=== PATIENT | female | born 1980 | race Caucasian/White ===

== ENCOUNTER 2019-08-05 15:13 | Emergency (ER) | payer BC, SELFPAY ==
[2019-08-05 15:18] VITALS: BP 127/72; PULSE 86; RESP 18; TEMP 37.1; O2SAT 100
--- NOTE | 2019-08-05 15:39 | ED.BACK ---
HPI - Back Pain/Injury General Chief Complaint: Back Pain/Injury Stated Complaint: back pain Time Seen by Provider: 08/05/19 15:24 Source: patient and RN notes reviewed Mode of arrival: ambulatory Limitations: no limitations History of Present Illness HPI Narrative: Patient presents today complaining of low back pain since 11 AM when she tried to lift a dresser at home. She reports sudden onset sharp pain, radiation to the left lateral hip that she describes as burning. Denies numbness or tingling in the legs or feet. Denies any loss of bowel or bladder control. Pain increases with movement. She has been taking Tylenol without relief. Currently rates her pain 11/12. No history of chronic back pain or back surgeries. MD elicited complaint: back pain Related Data Home Medications Medication Instructions Recorded Confirmed aripiprazole [Abilify] 10 mg PO HS 08/05/19 08/05/19 Allergies Allergy/AdvReac Type Severity Reaction Status Date / Time ibuprofen Allergy Intermediate Swelling Verified 08/05/19 15:27 Review of Systems Review of Systems: Narrative: CONSTITUTIONAL: Denies body aches, fever, chills, or sweats. EYES: Denies visual changes, redness, or discharge. ENT: Denies rhinorrhea, congestion, sore throat, or otalgia. CARDIOVASCULAR: Denies chest pain, palpitations, or edema. RESPIRATORY: Denies cough or dyspnea. GASTROINTESTINAL: Denies abdominal pain, nausea, vomiting, or diarrhea. GENITOURINARY: Denies dysuria or hematuria. SKIN: Denies rash, itching, or wounds. MUSCULOSKELETAL: Denies joint pain, or myalgia.+ Low back pain NEUROLOGIC: Denies headache, numbness, tingling, or weakness. PSYCH: Denies depression or anxiety. [facility] Surgical History Surgical History (Updated 08/05/19 @ 15:40 by Rox Coe, RECONCILIATION CLERK, ) H/O: hysterectomy Comments At time of signature, I have reviewed and agree with nursing past medical, surgical, social and family history unless otherwise noted. Please see nursing chart for further information. There is no relevant family history pertinent to the presenting complaint Exam Narrative: Exam Narrative: GENERAL: Well-appearing, well-nourished, and in mild pain distress. HEAD: Normocephalic, atraumatic. EYES: EOMI. No redness or drainage. Conjunctivae normal. ENT: Mucous membranes pink and moist. NECK: Normal AROM. CHEST: No respiratory distress. MUSCULOSKELETAL: Tenderness of the lower thoracic and entire lumbar spine and bilateral paraspinal muscles, right greater than left. Distal sensation intact. Capillary refill normal. Pedal pulses normal. Foot push and pulls normal. Saddle sensation intact. EXTREMITIES: Normal range of motion. No edema. SKIN: Warm, dry, no rash. Capillary refill normal. Normal skin turgor. NEURO: No focal deficits. Alert and oriented x3. Gait steady. PSYCH: Normal affect. No signs of depression or anxiety. Course Vital Signs Vital signs: Vital Signs Temperature 98.8 F 08/05/19 15:18 Pulse Rate 86 08/05/19 15:18 Respiratory Rate 18 08/05/19 15:18 Blood Pressure 127/72 08/05/19 15:18 Pulse Oximetry 100 08/05/19 15:18 Temperature 98.8 F 08/05/19 15:18 Pulse Rate 86 08/05/19 15:18 Respiratory Rate 18 08/05/19 15:18 Blood Pressure 127/72 08/05/19 15:18 Pulse Oximetry 100 08/05/19 15:18 Reviewed. Pt has been instructed to follow up with her PCP regarding her elevated blood pressure today. MDM - Back Pain/Injury Differential Diagnosis Differential diagnosis: Likely lumbar radiculopathy, sciatica, strain of lumbar region and thoracic back pain Critical Care Time Critical Care Time Critical Care Time: No Discharge Plan Discharge Clinical Impression: Low back strain Qualifiers: Encounter type: initial encounter Qualified Code(s): S39.012A - Strain of muscle, fascia and tendon of lower back, initial encounter Patient Disposition: Home, Self-Care Condition: Stable Instructions: Low B
== END 2019-08-05 15:45 | disposition home or self-care (01) ==
PROVIDERS: Emergency Provider Nurse Practitioner
DX: S39.012A Strain of muscle, fascia and tendon of lower back, initial encounter (principal); X50.0XXA Overexertion from strenuous movement or load, initial encounter
CPT/HCPCS: 99213; G0463

== ENCOUNTER 2020-01-04 11:44 | Emergency (ER) | payer BC, SELFPAY ==
[2020-01-04 11:52] VITALS: BP 115/69; PULSE 86; RESP 20; TEMP 36.8; O2SAT 98
--- NOTE | 2020-01-04 12:05 | ED.DENTAL ---
HPI - Dental/Oral General Chief complaint: Dental/Oral Stated complaint: tooth pain Time Seen by Provider: 01/04/20 12:00 Source: patient and RN notes reviewed Mode of arrival: ambulatory Limitations: no limitations History of Present Illness HPI Narrative: Patient presents today with right sided facial swelling since this morning. She had a small amount of to throbbing in the right upper teeth yesterday. History of dental abscesses. Denies shortness of breath, difficulty swallowing, fever. Denies pain. States she has a dentist appointment in 3 weeks. MD Complaint: tooth pain Related Data Home Medications Medication Instructions Recorded Confirmed cariprazine [Vraylar] 1.5 mg PO DAILY 01/04/20 01/04/20 Allergies Allergy/AdvReac Type Severity Reaction Status Date / Time ibuprofen Allergy Intermediate Swelling Verified 01/04/20 11:59 Review of Systems Review of Systems: Narrative: CONSTITUTIONAL: Denies body aches, fever, chills, or sweats. EYES: Denies visual changes, redness, or discharge. ENT: Denies rhinorrhea, congestion, sore throat, or otalgia.+Right upper tooth pain and jaw swelling CARDIOVASCULAR: Denies chest pain, palpitations, or edema. RESPIRATORY: Denies cough or dyspnea. GASTROINTESTINAL: Denies abdominal pain, nausea, vomiting, or diarrhea. GENITOURINARY: Denies dysuria or hematuria. SKIN: Denies rash, itching, or wounds. MUSCULOSKELETAL: Denies back pain, joint pain, or myalgia. NEUROLOGIC: Denies headache, numbness, tingling, or weakness. PSYCH: Denies depression or anxiety. [facility] Surgical History Surgical History (Updated 08/05/19 @ 15:40 by Rox Coe, [facility], ) H/O: hysterectomy Comments At time of signature, I have reviewed and agree with nursing past medical, surgical, social and family history unless otherwise noted. Please see nursing chart for further information. There is no relevant family history pertinent to the presenting complaint Exam Narrative: Exam Narrative: GENERAL: Well-appearing, well-nourished, and in no acute distress. HEAD: Normocephalic, atraumatic. EYES: EOMI. No redness or drainage. Conjunctivae normal. ENT: Mucous membranes pink and moist. Nares clear. No rhinorrhea. Throat normal. Uvula midline. Mild to moderate swelling of the right upper jawline. Gross dental decay throughout. Affected tooth #4 is dark in color and covered in plaque. Redness and swelling of the adjacent gumline noted. No obvious periapical abscess. -trismus. NECK: Normal AROM. Supple. No lymphadenopathy. CHEST: No respiratory distress. EXTREMITIES: Normal range of motion. No edema. SKIN: Warm, dry, no rash. Capillary refill normal. Normal skin turgor. NEURO: No focal deficits. Alert and oriented x3. Gait steady. PSYCH: Normal affect. No signs of depression or anxiety. Course Vital Signs Vital signs: Vital Signs Temperature 98.3 F 01/04/20 11:52 Pulse Rate 86 01/04/20 11:52 Respiratory Rate 01/04/20 11:52 Blood Pressure 115/69 01/04/20 11:52 Pulse Oximetry 98 01/04/20 11:52 Temperature 98.3 F 01/04/20 11:52 Pulse Rate 86 01/04/20 11:52 Respiratory Rate 01/04/20 11:52 Blood Pressure 115/69 01/04/20 11:52 Pulse Oximetry 98 01/04/20 11:52 Reviewed MDM - Dental/Oral Differential Diagnosis Differential diagnosis: Likely gingival abscess, dental caries, toothache, dental abscess and fracture of tooth Critical Care Time Critical Care Time Critical Care Time: No Discharge Plan Discharge Clinical Impression: Dental abscess Patient Disposition: Home, Self-Care Condition: Stable Instructions: Antibiotic Form, Dental Abscess (ED) Additional Instructions: Please take the amoxicillin and prednisone as directed. Follow-up with your dentist as scheduled. Take Tylenol at home for pain. Go to the ER immediately with shortness of breath or difficulty swallowing. Patient Language: Honduran Prescriptions: New
== END 2020-01-04 12:20 | disposition home or self-care (01) ==
PROVIDERS: Emergency Provider Nurse Practitioner
DX: K04.7 Periapical abscess without sinus (principal); F31.9 Bipolar disorder, unspecified
CPT/HCPCS: 99213; G0463

== ENCOUNTER 2021-03-16 11:03 | Emergency (ER) | payer BC, SELFPAY ==
--- NOTE | ~2021-03-16 | XR_ITS ---
EXAMINATION: XR elbow LT min 3V DATE: 03/16/2021 11:33 INDICATION: Left elbow pain TECHNIQUE: Anteroposterior, two oblique and lateral views of the left elbow were obtained. COMPARISON: None. FINDINGS: Alignment is normal. No fracture or joint effusion. Joint spaces are normal. Soft tissues a re unremarkable. IMPRESSION: 1. No acute osseous abnormality. Reviewed, dictated and finalized at location B. O CONTROL OPERATOR
--- NOTE | 2021-03-16 11:08 | WC.ED.TRAUMA ---
HPI - Trauma General Chief Complaint: Extremity Injury, Upper Stated Complaint: Fall Injury/Wrist/ Shoulder Pain Time Seen by Provider: 03/16/21 11:08 Source: patient and RN notes reviewed History of Present Illness HPI narrative: Patient is a 40-year-old female who presents the urgent care with complaints of left left elbow pain. Patient states that she slipped down 3 wooden steps on linoleum onto her left elbow. Patient states that it did jolt her shoulder however she is not having any issues with the shoulder at this time. Patient has not taken anything prior to arrival for her incident that occurred at 9 AM. Patient denies of hitting her head or any loss of consciousness. No other acute complaints. No acute distress noted. Patient aware of the plan of care. Some parts of this dictation were generated by voice recognition software and may contain typographical and/or grammatical inaccuracies. Related Data Allergies Allergy/AdvReac Type Severity Reaction Status Date / Time NSAIDS (Non-Steroidal Allergy Other Verified 03/16/21 11:19 Anti-Inflamma Review of Systems Review of Systems: CONSTITUTIONAL: Denies fever, chills, or sweats. EYES: Denies visual changes, redness, or discharge. ENT: Denies rhinorrhea, congestion, sore throat, or otalgia. CARDIOVASCULAR: Denies chest pain, palpitations, or edema. RESPIRATORY: Denies cough or dyspnea. GASTROINTESTINAL: Denies abdominal pain, nausea, vomiting, or diarrhea. GENITOURINARY: Denies dysuria or hematuria. SKIN: Denies rash or itching. MUSCULOSKELETAL: Reports of left elbow pain NEUROLOGIC: Denies headache, numbness, or weakness. All other systems reviewed are negative, except as documented in HPI. [facility] Surgical History Surgical History (Updated 08/05/19 @ 15:40 by Rox Coe, [facility], ) H/O: hysterectomy Comments At the time of my signature, I reviewed and agree with the nursing past medical, surgical, social, and family history. There is no relevant family history pertinent to the patient complaint. Exam Narrative: GENERAL: This is a well-nourished, well-developed patient, in no apparent distress. HEAD: normocephalic, atraumatic. EYES: PERRL. Sclera clear/white. Vision is grossly intact. EARS: External ears normal NOSE: External nose normal with no obvious nasal discharge, nares without redness, no rhinorrhea. THROAT: Mucous membranes moist NECK: Neck supple, non-tender without lymphadenopathy, masses or thyromegaly. CARDIOVASCULAR: Regular rate and rhythm without murmurs, gallops, or rubs. RESPIRATORY: Clear to auscultation. Breath sounds equal bilaterally. No wheezes, rales, or rhonchi. SKIN: warm, intact with no suspicious lesions or rash, good texture and turgor. NEURO: awake, alert, and oriented to person, place and time. There were no obvious focal neurologic abnormalities. EXTREMITIES: Range of motion within normal limits to left upper extremity. No obvious deformity noted to the left shoulder or left elbow. No ecchymosis or erythema noted. Positive strong left radial pulse with capillary refill less than 2 seconds. Course Vital Signs Vital signs: Vital Signs Temperature 97.4 F L 03/16/21 11:10 Pulse Rate 78 03/16/21 11:10 Respiratory Rate 16 03/16/21 11:10 Blood Pressure 132/76 03/16/21 11:10 Pulse Oximetry 100 03/16/21 11:10 Temperature 97.4 F L 03/16/21 11:20 Pulse Rate 78 03/16/21 11:20 Respiratory Rate 16 03/16/21 11:20 Blood Pressure 132/76 03/16/21 11:20 Pulse Oximetry 100 03/16/21 11:20 Reviewed MDM - Trauma MDM Narrative Medical decision making narrative: Reviewed x-ray results with the patient. She is aware that x-ray of the elbow was negative. Advised the patient to use ibuprofen and the muscle relaxer as needed for pain and comfort. Make sure to move the left arm with passive range of motion to avoid stiffness. Follow-up with your PCP within 2 to 5 days or for worsening symptoms or failure to
[2021-03-16 11:10] VITALS: BP 132/76; PULSE 78; RESP 16; TEMP 36.3; O2SAT 100
[2021-03-16 11:20] VITALS: BP 132/76; PULSE 78; RESP 16; TEMP 36.3; O2SAT 100
== END 2021-03-16 12:11 | disposition home or self-care (01) ==
PROVIDERS: Emergency Provider Nurse Practitioner Family
DX: M25.522 Pain in left elbow (principal)
CPT/HCPCS: 73080; 99213; G0463

== ENCOUNTER 2021-04-06 09:01 | Emergency (ER) | payer BC, SELFPAY ==
[2021-04-06 09:06] VITALS: BP 132/83; PULSE 94; RESP 16; TEMP 37; O2SAT 100
--- NOTE | 2021-04-06 09:16 | ED.URI ---
HPI - URI/Sore Throat General Chief Complaint: Upper Respiratory Infection Stated Complaint: sore throat cough diarrhea Time Seen by Provider: 04/06/21 09:16 Source: patient and RN notes reviewed Mode of arrival: ambulatory Limitations: no limitations History of Present Illness HPI Narrative: Inge a 40-year-old female patient who ambulated into the [facility]. Patient states she is had a sore throat for 1 week. She has developed hoarseness, cough, and states she developed diarrhea last night about midnight. Patient states she is been using NyQuil at home with some relief. Patient states she is still eating and drinking normally. Related Data Allergies Allergy/AdvReac Type Severity Reaction Status Date / Time NSAIDS (Non-Steroidal Allergy Severe Anaphylaxis Verified 04/06/21 09:20 Anti-Inflamma Review of Systems Review of Systems: CONSTITUTIONAL: Denies body aches, fever, chills, or sweats. EYES: Denies visual changes, redness, or discharge. ENT: Denies rhinorrhea, congestion, +sore throat, or otalgia. CARDIOVASCULAR: Denies chest pain, palpitations, or edema. RESPIRATORY: +cough denies dyspnea. GASTROINTESTINAL: Denies abdominal pain, nausea, vomiting, or diarrhea. GENITOURINARY: Denies dysuria or hematuria. SKIN: Denies rash, itching, or wounds. MUSCULOSKELETAL: Denies back pain, joint pain, or myalgia. NEUROLOGIC: Denies headache, numbness, tingling, or weakness. PSYCH: Denies depression or anxiety. All systems reviewed & are unremarkable except as noted in HPI and below PMFSH Surgical History Surgical History H/O: hysterectomy Comments At time of signature, I have reviewed and agree with nursing past medical, surgical, social and family history unless otherwise noted. Please see nursing chart for further information. There is no relevant family history pertinent to the presenting complaint Exam Narrative: GENERAL: Well-appearing, well-nourished, and in no acute distress. HEAD: Normocephalic, atraumatic. EYES: EOMI. No redness or drainage. Conjunctivae normal. ENT: Mucous membranes pink and moist. Nasal membranes are erythematous this with clear rhinorrhea. Bilateral tympanic membranes are dull with minimal fluid. Posterior pharynx is erythemic with moderate amount of edema and negative for exudate. Uvula midline. NECK: Normal AROM. Supple. Left anterior cervical lymphadenopathy. CHEST: No respiratory distress. Clear to auscultation. HEART: Regular rate and rhythm. No murmur appreciated. Normal peripheral pulses. ABDOMEN: Soft, nontender, nondistended, normal active bowel sounds. MUSCULOSKELETAL: No bony tenderness. EXTREMITIES: Normal range of motion. No edema. SKIN: Warm, dry, no rash. Capillary refill normal. Normal skin turgor. NEURO: No focal deficits. Alert and oriented x3. Gait steady. PSYCH: Normal affect. No signs of depression or anxiety. Course Vital Signs Vital signs: Vital Signs Temperature 37.0 C 04/06/21 09:06 Pulse Rate 94 04/06/21 09:06 Respiratory Rate 16 04/06/21 09:06 Blood Pressure 132/83 04/06/21 09:06 Pulse Oximetry 100 04/06/21 09:06 Temperature 37.0 C 04/06/21 09:06 Pulse Rate 94 04/06/21 09:06 Respiratory Rate 16 04/06/21 09:06 Blood Pressure 132/83 04/06/21 09:06 Pulse Oximetry 100 04/06/21 09:06 Reviewed. Pt has been instructed to follow up with her PCP regarding her elevated blood pressure today. MDM - URI/Sore Throat MDM Narrative Medical decision making narrative: Patient's rapid strep is negative. Throat culture will be sent to lab. I discussed with the patient that her illness is most likely viral. Instructed the patient to increase her fluids, take Tylenol, may use [id number] cough medicine, and decrease smoking. Follow-up with your primary care physician in 7 to 10 days for continued or worsening symptoms Differential Diagnosis Differential diagnosi
== END 2021-04-06 09:30 | disposition home or self-care (01) ==
PROVIDERS: Emergency Provider Nurse Practitioner Family
DX: J02.8 Acute pharyngitis due to other specified organisms (principal)
CPT/HCPCS: 87081; 87880; 99213; G0463

== ENCOUNTER 2021-10-06 11:23 | Emergency (ER) | payer BC, SELFPAY ==
[2021-10-06 11:27] VITALS: BP 142/83; PULSE 80; RESP 20; TEMP 36.6; O2SAT 100
--- NOTE | 2021-10-06 11:30 | ED.DENTAL ---
HPI - Dental/Oral General Chief complaint: Dental/Oral Stated complaint: right side face swollen Time Seen by Provider: 10/06/21 11:30 Source: patient and RN notes reviewed History of Present Illness HPI Narrative: Patient is a 41-year-old female who presents the urgent care with complaints of left facial swelling and dental abscess. Patient states that she was seen at another urgent care 2 days ago and placed on Augmentin. Patient states that she is completed 2 days of the Augmentin and has not taken the medication today. Patient denies of any further pain but states she woke up with the facial swelling this morning. Denies of any fever, nausea or vomiting. Patient does have a dentist appointment the first week of November. No other complaints. No acute distress noted. Patient aware of the plan of care. Some parts of this dictation were generated by voice recognition software and may contain typographical and/or grammatical inaccuracies. Related Data Home Medications Medication Instructions Recorded Confirmed amoxicillin 875 mg-potassium 1 tablet PO BID 10/06/21 10/06/21 clavulanate 125 mg tablet lidocaine HCl 2 % mucosal solution 1 ml topical DAILY PRN Pain 10/06/21 10/06/21 (Lidocaine Viscous) Allergies Allergy/AdvReac Type Severity Reaction Status Date / Time NSAIDS (Non-Steroidal Allergy Severe Anaphylaxis Verified 10/06/21 11:34 Anti-Inflamma Review of Systems Review of Systems: CONSTITUTIONAL: Denies fever, chills, or sweats. EYES: Denies visual changes, redness, or discharge. ENT: Denies rhinorrhea, congestion, sore throat, or otalgia. Reports of left facial swelling and dental abscess CARDIOVASCULAR: Denies chest pain, palpitations, or edema. RESPIRATORY: Denies cough or dyspnea. GASTROINTESTINAL: Denies abdominal pain, nausea, vomiting, or diarrhea. GENITOURINARY: Denies dysuria or hematuria. SKIN: Denies rash or itching. MUSCULOSKELETAL: Denies back pain, joint pain, or myalgia. NEUROLOGIC: Denies headache, numbness, or weakness. All other systems reviewed are negative, except as documented in HPI. [facility] Surgical History Surgical History H/O: hysterectomy Comments At the time of my signature, I reviewed and agree with the nursing past medical, surgical, social, and family history. There is no relevant family history pertinent to the patient complaint. Exam Narrative: GENERAL: This is a well-nourished, well-developed patient, in no apparent distress. HEAD: normocephalic, atraumatic. EYES: PERRL. Sclera clear/white. Vision is grossly intact. EARS: External ears normal, auditory canals clear and without drainage, TMs normal without perforation. Hearing grossly intact. NOSE: External nose normal with no obvious nasal discharge, nares without redness, no rhinorrhea. THROAT: Mucous membranes moist, posterior pharynx clear. Mild postnasal drainage DENTAL: Poor dentition throughout with multiple carious lesions and severe plaque and gingivitis. Avulsed teeth to the left upper quadrant with surrounding erythema and edema to the gingiva. Mild to moderate left upper facial swelling NECK: Neck supple, non-tender without lymphadenopathy CARDIOVASCULAR: Regular rate and rhythm without murmurs, gallops, or rubs. RESPIRATORY: Clear to auscultation. Breath sounds equal bilaterally. No wheezes, rales, or rhonchi. SKIN: warm, intact with no suspicious lesions or rash, good texture and turgor. NEURO: awake, alert, and oriented to person, place and time. There were no obvious focal neurologic abnormalities. EXTREMITIES: No clubbing, cyanosis, or edema. Course Course Level of Care: Express Care Visit Vital Signs Vital signs: Vital Signs Temperature 97.9 F 10/06/21 11:27 Pulse Rate 80 10/06/21 11:27 Respiratory Rate 20 10/06/21 11:27 Blood Pressure 142/83 H 10/06/21 11:27 Pulse Oximetry 100 10/06/21 11:27 Oxygen Delivery Room Air
== END 2021-10-06 11:45 | disposition home or self-care (01) ==
PROVIDERS: Emergency Provider Nurse Practitioner Family
DX: K02.9 Dental caries, unspecified (principal); K04.7 Periapical abscess without sinus; S02.5XXA Fracture of tooth (traumatic), initial encounter for closed fracture; X58.XXXA Exposure to other specified factors, initial encounter
CPT/HCPCS: 99213; G0463

== ENCOUNTER 2023-01-09 13:18 | Emergency (ER) | payer OTHER, SELFPAY ==
[2023-01-09 13:24] VITALS: BP 121/69; PULSE 69; RESP 20; TEMP 36.9; O2SAT 100
--- NOTE | 2023-01-09 13:48 | ED.UPPEXIN ---
HPI - Extremity Injury (Upper) General Chief Complaint: Extremity Injury, Upper Stated Complaint: right elbow and up Time Seen by Provider: 01/09/23 13:40 Source: patient Mode of arrival: ambulatory Limitations: no limitations History of Present Illness HPI narrative: Amanda is a 42-year-old female patient presenting to clinic today with complaints of right elbow pain that is radiating down her arm and upper arm. Reports she has had history tendinitis before. 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 Patient denies any fever, chills, rash, headache, visual changes, dizziness, cough, runny nose, sore throat, shortness of breath, chest pain, palpitations, nausea, vomiting, diarrhea, constipation, abdominal pain, or any urinary issues. PMFSH Surgical History Surgical History H/O: hysterectomy Comments At the time of my signature, I reviewed and agree with the nursing past medical, surgical, social, and family history. There is no relevant family history pertinent to the patient complaint. Exam Narrative: General: Well-developed, well nourished, in no apparent distress Head: Normocephalic, atraumatic. Cardio: Regular rate and rhythm, s1 and s2 normal, no murmur appreciated. Resp: Clear to auscultation bilaterally, no rhonchi, rales, wheezing or rubs. Musculoskeletal: No deformity,swelling/ tender to palpation over the posterior and anterior elbow,pain with flexion and extension of the elbow against resistance, positive tinels to the anterior elbow, muscle strength strong and equal, peripheral pulse strong, no cyanosis, normal gait and station Course Course Emergency Course: Portions of this record may have been created with voice recognition software. Level of Care: Express Care Visit Vital Signs Vital signs: Vital Signs Temperature 36.9 C 01/09/23 13:24 Pulse Rate 69 01/09/23 13:24 Respiratory Rate 20 01/09/23 13:24 Blood Pressure 121/69 01/09/23 13:24 Pulse Oximetry 100 01/09/23 13:24 Oxygen Delivery Room Air 01/09/23 13:24 Temperature 36.9 C 01/09/23 13:24 Pulse Rate 69 01/09/23 13:24 Respiratory Rate 20 01/09/23 13:24 Blood Pressure 121/69 01/09/23 13:24 Pulse Oximetry 100 01/09/23 13:24 Oxygen Delivery Room Air 01/09/23 13:24 Vital signs reviewed MDM - Extremity Injury (Upper) MDM Narrative Medical decision making narrative: At the time of visit patient is resting comfortably on the exam table. I suspect patient has right elbow tendinitis. Prescription for prednisone was sent to the pharmacy. Patient states she has take prednisone before and did not have any issues with this medication. Will also have her apply blue emu, lidocaine, or icy Hot to the affected area. Wear arm sling x1 week. Follow-up with PCP in 1 week if symptoms persist to rule out tendon tear. Differential Diagnosis Differential diagnosis: Likely other (elbow tendonitis, elbow pain, elbow fracture, biceps tendonitis, tendon tear.) Discharge Plan Discharge Clinical Impression: Right elbow tendonitis Patient Disposition: Home, Self-Care Condition: Stable Instructions: Antibiotic Form, Tendinitis (ED) Additional Instructions: Take prescription medications only as prescribed-prednisone Increase fluids and stay well hydrated May apply icy Hot, blue emu, or lidocaine to the affected area Wear arm sling x1 week Follow-up with your PCP in 1 week if symptoms persist or sooner if they worsen Prescriptions: New prednisone 10 mg tablet 10 mg
== END 2023-01-09 13:58 | disposition home or self-care (01) ==
PROVIDERS: Emergency Provider Nurse Practitioner Family
DX: M77.8 Other enthesopathies, not elsewhere classified (principal)
CPT/HCPCS: 99213; A4565; G0463

== ENCOUNTER 2023-03-22 09:21 | Emergency (ER) | payer OTHER, SELFPAY ==
--- NOTE | ~2023-03-22 | XR_ITS ---
EXAMINATION: XR ankle RT min 3V INDICATION: Right ankle pain TECHNIQUE: Four views of the right ankle are obtained. COMPARISON: None available FINDINGS: Bone alignment is normal. There is no fracture. There is mild soft tissue swelling of ankle . IMPRESSION: 1. No acute osseous abnormality. Reviewed, dictated and finalized at location A. [facility]
--- NOTE | 2023-03-22 09:23 | ED.LOWEXIN ---
HPI - Extremity Injury (Lower) General Chief Complaint: Extremity Injury, Lower Stated Complaint: right ankle injury Time Seen by Provider: 03/22/23 09:23 Source: patient Mode of arrival: ambulatory Limitations: no limitations History of Present Illness HPI Narrative: Inge is a 42-year-old female patient presenting to the clinic today with complaints of a right ankle injury/pain x2 days. She reports she stepped on some of the level ground and inverted her ankle. She is reporting pain to the lateral right ankle. Is able to walk on it but there is a great deal of pain. Related Data Home Medications Medication Instructions Recorded Confirmed No Home Medications 03/22/23 03/22/23 Allergies Allergy/AdvReac Type Severity Reaction Status Date / Time NSAIDS (Non-Steroidal Allergy Severe Anaphylaxis Verified 03/22/23 09:32 Anti-Inflamma Review of Systems Review of Systems: Pertinent positives per HPI. Patient denies any fever, chills, rash, headache, visual changes, dizziness, cough, runny nose, sore throat, shortness of breath, chest pain, palpitations, nausea, vomiting, diarrhea, constipation, abdominal pain, or any urinary issues. PMFSH Surgical History Surgical History H/O: hysterectomy Comments At the time of my signature, I reviewed and agree with the nursing past medical, surgical, social, and family history. There is no relevant family history pertinent to the patient complaint. Exam Narrative: General: Well-developed, well nourished, in no apparent distress Head: Normocephalic, atraumatic. Cardio: Regular rate and rhythm, s1 and s2 normal, no murmur appreciated. Resp: Clear to auscultation bilaterally, no rhonchi, rales, wheezing or rubs. Musculoskeletal: No deformity,tender to palpation over the right lateral ankle, pain with valgus and varus testing, pain with dorsal and plantar flexion against resistance, grossly normal range of motion, muscle strength strong and equal, peripheral pulse strong, no edema, no cyanosis, Limping gait and station Course Course Emergency Course: Portions of this record may have been created with voice recognition software. Level of Care: Express Care Visit Vital Signs Vital signs: Vital signs reviewed MDM - Extremity Injury (Lower) MDM Narrative Medical decision making narrative: At the time of visit patient is resting comfortably on the exam table. X-ray of the right ankle was performed and was negative for any sign of fracture or malalignment. Wally wrap was applied. supportive measures were discussed with the patient she voiced understanding of the discharge instructions and agrees to treatment plan. Differential Diagnosis Differential diagnosis: Likely ankle sprain and strain and ankle fracture Imaging Data Radiologist's impression: ITS Impressions Ankle X-Ray 03/22/23 09:41 IMPRESSION: 1. No acute osseous abnormality. Discharge Plan Discharge Clinical Impression: Ankle strain Patient Disposition: Home, Self-Care Condition: Stable Instructions: Antibiotic Form, Ankle Sprain (ED), Ankle Stirrup Splint (ED) Additional Instructions: X-rays negative for any sign of fracture or malalignment. Rest, ice, elevate, and wear wally wrap as directed May wear ankle stirrup splint with ambulating Tylenol for pain as discussed. Gradually bear weight No running or sports until healed. Follow up with your PCP if symptoms persist more than 1 week. Prescriptions: No Action No Home Medications Follow-up/Referrals: UNKNOWN,DOCTOR [Non-Staff] - Time of Disposition: 09:48 Quality NIHSS Nursing Documentation ED NIHSS nursing documentation: reviewed/agree
[2023-03-22 09:26] VITALS: BP 127/82; PULSE 90; RESP 16; TEMP 36.1; O2SAT 100
--- NOTE | 2023-03-22 09:54 | PC.NURSE ---
+PMS POST KATJA APPLICATION
== END 2023-03-22 09:50 | disposition home or self-care (01) ==
PROVIDERS: Emergency Provider Nurse Practitioner Family
DX: S96.911A Strain of unspecified muscle and tendon at ankle and foot level, right foot, initial encounter (principal); X50.9XXA Other and unspecified overexertion or strenuous movements or postures, initial encounter
CPT/HCPCS: 73610; 99213; G0463

== ENCOUNTER 2023-04-14 13:34 | Emergency (ER) | payer OTHER, SELFPAY ==
[2023-04-14 13:40] VITALS: BP 122/75; PULSE 80; RESP 16; TEMP 36.5; O2SAT 100
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
== END 2023-04-14 14:10 | disposition home or self-care (01) ==
PROVIDERS: Emergency Provider Nurse Practitioner Family
DX: M77.8 Other enthesopathies, not elsewhere classified (principal)
CPT/HCPCS: 99213; G0463

== ENCOUNTER 2023-06-12 11:43 | Emergency (ER) | payer OTHER, SELFPAY ==
[2023-06-12 12:00] VITALS: BP 125/76; PULSE 82; RESP 16; TEMP 36.6; O2SAT 100
--- NOTE | 2023-06-12 13:16 | ED.NAVMDI ---
HPI - Nausea/Vomiting/Diarrhea General Chief complaint: Nausea/Vomiting/Diarrhea Stated complaint: Vomiting/Diarrhea Time Seen by Provider: 06/12/23 13:15 Source: patient, RN notes reviewed and old records reviewed Mode of arrival: ambulatory Limitations: no limitations History of Present Illness HPI Narrative: 42 year old female presents to [facility] care with complaints of abdominal cramping nausea vomiting and diarrhea fatigue which started this morning. Patient reports that she has had 8 emesis and 6 diarrhea stools with last emesis about an hour ago and has been able to drink some water..Patient states ate take out Pizza last night. Patient also reports that she has had urinary frequency for the past week with some right flank pain for 2 days denies any burning or pain with urination denies any radiation of pain with no history of kidney stones.Patient has not taken any OTC medication for her discomfort. MD elicited complaint: nausea, vomiting, diarrhea and abdominal pain (cramping) Onset (ago): hour(s) (this morning) Description of vomiting: food contents and watery Description of diarrhea: watery Location of pain: other (mid abdomen) Severity: mild Quality: other (cramping) Treatment prior to arrival: none Related Data Allergies Allergy/AdvReac Type Severity Reaction Status Date / Time NSAIDS (Non-Steroidal Allergy Severe Anaphylaxis Verified 04/14/23 13:39 Anti-Inflamma Review of Systems Review of Systems: CONSTITUTIONAL: Reports malaise,no chills, sweats, or fever. EYES: Denies visual changes, redness, or discharge. ENT: Reports rhinorrhea, congestion, sinus pain, otalgia and sore throat. CARDIOVASCULAR: Denies chest pain, palpitations, or edema. RESPIRATORY: Reports no cough.? Denies dyspnea. GASTROINTESTINAL: crampy abdominal pain, nausea, vomiting, diarrhea, states urinary frequency for one week and right flank pain x2 days SKIN: Denies rash or itching. MUSCULOSKELETAL: Denies myalgia. NEUROLOGIC: Denies headache. All systems reviewed & are unremarkable except as noted in HPI and below PMFSH Past Medical History Medical History (Updated 06/14/23 @ 11:33 by Bruna Knight NP) Bipolar disorder Depression Fracture of both wrists Fracture, ribs Fractured sternum Surgical History Surgical History H/O: hysterectomy Social History Social History (Updated 06/14/23 @ 11:28 by Bruna Knight NP) Smoking packs per day: 0.5 Smoking cigarettes per day: 10.0 Years smoked: 20 Smoking pack-years: 10.00 Smoking status: Current every day smoker Tobacco type: cigarettes and e-cigarettes/vaping Alcohol intake: unknown Substance use type: does not use Gender identity (if verbalized by the patient): Female Comments At time of signature, agree with nursing past medical, surgical, social and family history. There is no relevant family history pertinent to the presenting complaint Exam Narrative: GENERAL: Well-appearing, well-nourished, and in no acute distress. HEAD: Normocephalic EYES: PERRLA, conjunctivae clear ENT: Nares clear, turbinates edematous and erythematous, clear discharge. Mucous membranes moist. TM pearly harden with dull light reflex bilaterally; no tragal tenderness. Oropharynx erythematous without lesions. Tonsils not enlarged and without exudate, no drooling, no hoarseness, no trismus, uvula midline. ABDOMEN soft nontender to palpation, nondistended, hyper active bowel sounds,no supra pubic tenderness no CVA tenderness on exam NECK: Supple. No lymphadenopathy CHEST: Clear to auscultation, breath sounds equal. No wheezing, rhonchi, rales, or stridor. No respiratory distress, speaks in full sentences.SAO2 HEART: Regular rate and rhythm. No murmur heard. SKIN: Warm, dry, no rash. NEURO: Alert and oriented x3. PSYCH: Normal mood and affect Course Course Emergency Course: Patient is
--- NOTE | 2023-06-12 13:35 | PC.NURSE ---
NO UC ORDERED PER PROVIDER
== END 2023-06-12 13:33 | disposition home or self-care (01) ==
PROVIDERS: Emergency Provider Registered Nurse
DX: K52.9 Noninfective gastroenteritis and colitis, unspecified (principal); F17.210 Nicotine dependence, cigarettes, uncomplicated; F17.290 Nicotine dependence, other tobacco product, uncomplicated
CPT/HCPCS: 81003; 99213; G0463

== ENCOUNTER 2023-09-16 13:14 | Emergency (ER) | payer OTHER, SELFPAY ==
[2023-09-16 13:35] VITALS: BP 135/77; PULSE 68; RESP 20; TEMP 36.2; O2SAT 98
--- NOTE | 2023-09-16 14:12 | ED.URI ---
HPI - URI/Sore Throat General Chief Complaint: Upper Respiratory Infection Stated Complaint: throat swelling/itching Time Seen by Provider: 09/16/23 13:55 Source: patient, family, RN notes reviewed and old records reviewed Mode of arrival: ambulatory Limitations: no limitations History of Present Illness HPI Narrative: 42 year [facility] complaints of sore throat for the past couple of hours feels swollen. She reports that her right ear feels itchy and is ringing. She states she has a headache and cough also . 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 She reports that she has new client that had recently been in hospital due to COVID. Patient reports no known fevers chills or sweats. MD elicited complaint: cough and sore throat Onset (ago): hour(s) (few hours ago) Severity: mild Able to tolerate fluids by mouth: Yes Treatments prior to arrival: none Related Data Allergies Allergy/AdvReac Type Severity Reaction Status Date / Time NSAIDS (Non-Steroidal Allergy Severe Anaphylaxis Verified 04/14/23 13:39 Anti-Inflamma Review of Systems Review of Systems: CONSTITUTIONAL: Denies malaise, chills, sweats, or fever. EYES: Denies visual changes, redness, or discharge. ENT: Reports rhinorrhea, congestion, sinus pain,right otalgia and positive for sore throat. CARDIOVASCULAR: Denies chest pain, palpitations, or edema. RESPIRATORY: Reports cough.? Denies dyspnea. GASTROINTESTINAL: Denies abdominal pain, nausea, vomiting, diarrhea SKIN: Denies rash or itching. MUSCULOSKELETAL: Denies myalgia. NEUROLOGIC: Reports headache. All systems reviewed & are unremarkable except as noted in HPI and below PMFSH Past Medical History Medical History Bipolar disorder Depression Fracture of both wrists Fracture, ribs Fractured sternum Surgical History Surgical History H/O: hysterectomy Social History Social History Smoking packs per day: 0.5 Smoking cigarettes per day: 10.0 Years smoked: 20 Smoking pack-years: 10.00 Smoking status: Current every day smoker Tobacco type: cigarettes and e-cigarettes/vaping Alcohol intake: unknown Substance use type: does not use Gender identity (if verbalized by the patient): Female Comments At time of signature, agree with nursing past medical, surgical, social and family history. There is no relevant family history pertinent to the presenting complaint Exam Narrative: GENERAL: Well-appearing, well-nourished, and in no acute distress. HEAD: Normocephalic EYES: PERRLA, conjunctivae clear ENT: Nares clear, turbinates edematous and erythematous, clear discharge. Mucous membranes moist. TM pearly harden with dull light reflex bilaterally; no tragal tenderness. Oropharynx erythematous without lesions. Tonsils not enlarged and without exudate, no drooling, no hoarseness, no trismus, uvula midline.post nasal drainage NECK: Supple. No lymphadenopathy CHEST: Clear to auscultation, breath sounds equal. No wheezing, rhonchi, rales, or stridor. No respiratory distress, speaks in full sentences.dry cough SAO2 98% on room air HEART: Regular rate and rhythm. No murmur heard. SKIN: Warm, dry, no rash. NEURO: Alert and oriented x3. PSYCH: Normal mood and affect Course Course Emergency Course: Patient is aware of diagnosis, understands and agrees to treatment plan.? Anticipatory guidance given.? Patient agrees to follow-up as directed and is aware of reasons to seek care at the emergency department. Portions of this record may have been created with voice recognition software Level of Care: Express Care Visit Vital Signs Vital signs: Vital Signs Temperature 36.2 C L
== END 2023-09-16 14:58 | disposition home or self-care (01) ==
PROVIDERS: Emergency Provider Registered Nurse
DX: J02.9 Acute pharyngitis, unspecified (principal); R05.9 Cough, unspecified; Z20.822 Contact with and (suspected) exposure to COVID-19; F17.210 Nicotine dependence, cigarettes, uncomplicated; F17.290 Nicotine dependence, other tobacco product, uncomplicated
CPT/HCPCS: 87081; 87426; 87804; 87880; 99213; G0463